=== PATIENT | female | born 1955 | race Caucasian/White ===

== ENCOUNTER 2016-03-31 17:09 | Emergency (ER) | payer OTHER ==
[~2016-03-31] VITALS: Ht 172.7 cm; Wt 119.3 kg
[~2016-03-31 17:09] MED LIST: ALLOPURINOL300 MG PO; ASPIRIN81 M1 PO; DILTIAZEM HCL120 M2 PO; HYDROCHLOROTHIA1 TA2 PO; METFORMIN HCL500 MG PO; VITAB121000 PO; VITAMIN D31000 IU PO; ZOCOR20 MG PO
--- NOTE | 2016-03-31 17:26 | ED HEADACHE COMPLAINT ---
History of Present Illness General Chief Complaint: General Adult Stated Complaint: " I HAVE HIGH BLOOD PRESSURE" Source: patient Exam Limitations: no limitations Vital Signs & Intake/Output Vital Signs & Intake/Output Vital Signs Date Time Temp Pulse Resp B/P Pulse O2 O2 Flow FiO2 Ox Delivery Rate 03/31 1837 128/68 03/31 1752 96 Room Air 03/31 1735 99.2 74 18 148/72 97 Room Air Allergies Coded Allergies: NO KNOWN ALLERGIES (03/31/16) Reconcile Medications Allopurinol 300 MG TAB 1 TAB PO DAILY GOUT (Reported) Aspirin 81 MG CTB 1 TAB PO DAILY HEART (Reported) Cholecalciferol (Vitamin D3) 1,000 IU TAB 1 TAB PO DAILY SUPPLEMENT (Reported ) Cyanocobalamin (Vitamin B-12) 1,000 MCG TAB 1 TAB PO DAILY V (Reported) Diltiazem Hydrochloride (Diltiazem HCl) 120 MG C24 1 CAP PO DAILY HEART ( Reported) LISINOPRIL/HYDROCHLOROTHIAZIDE (Lisinopril-Hctz 20-12.5 MG Tab) 1 TAB TAB 1 TAB PO DAILY HEART (Reported) Metformin Hydrochloride (Metformin HCl) 500 MG TAB 1 TAB PO BID DIABETES ( Reported) Simvastatin (Zocor) 20 MG TAB 1 TAB PO DAILY CHOLESTEROL (Reported) Triage Nurses Notes Reviewed? yes HPI: 60-year-old female arrived to triage to room 3 for evaluation of high blood pressure readings at home and headache that she's had for 1 day. Shweta reports that she'll get neck tightness that travels up into the back of her head which causes headaches along with some blurred vision and dizziness. This is occurred for one day. She has minimal pain at this time tight sensation in her neck and back of her head. She has been taking her blood pressures at home, automatic and BPs have been 160-150's / 90's. Her was concerned and brought her here for evaluation. She denies chest pain, SOB, abd pain. She took all her medications today except Cartia 120 mg and Metformin. (LAURIE SEVERINO APRN) Past History Travel History Traveled to [place] past 21 day No Medical History Any Pertinent Medical History? 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 No (LAURIE SEVERINO APRN) Review of Systems Review of Systems Constitutional: Denies: no symptoms. Eyes: Reports: blurred vision. Ears, Nose, Throat, Mouth: Denies: no symptoms. Respiratory: Denies: no symptoms. Cardiovascular: Denies: no symptoms. Gastrointestinal/Abdominal: Denies: no symptoms. Genitourinary: Denies: no symptoms. Musculoskeletal: Denies: no symptoms. Skin: Denies: no symptoms. Neurological/Psychological: Reports: ataxia, headache. Hematologic/Endocrine: Denies: no symptoms. Endocrine: Denies: no symptoms. Immunologic/Allergic: Denies: no symptoms. (LAURIE SEVERINO APRN) Physical Exam Physical Exam General Appearance: well developed/nourished, no apparent distress, alert, awake , obese Head: atraumatic, normal appearance Eyes: Bilateral: normal appearance, PERRL, EOMI. Ears, Nose, Throat: normal pharynx, normal ENT inspection Neck: supple, full range of motion, tender lateral (muscle spasms right) Respiratory: normal breath sounds, chest non-tender, no respiratory distress Cardiovascular: regular rate/rhythm, normal peripheral pulses Gastrointestinal: normal bowel sounds, soft, non-tender Back: normal inspection, normal range of motion Extremities: normal inspection, normal capillary refill, normal range of motion, no edema Psychiatric: awake, alert, oriented x 3 Cranial Nerves: normal hearing, normal speech, PERRL Coordination/Gait: normal finger to nose, normal gait Motor/Sensory: no motor/sensory deficits Skin: intact, normal color, warm/dry Core Measures Severe Sepsis Present: No Septic Shock Present: No (LAURIE SEVERINO APRN) Progress Differential Diagnosis: tension FORREST Plan of Care: Orders Procedure Date/time Status TROPONIN LEVEL 03/31 1731 Complete COMPREHENSIVE METABOLIC PANEL 03/31 173 Complete CBC WITHOUT DIFFERENTIAL 03/31 1731 Complete EKG 03/31 173 Active Laboratory Tests 03/31/16 1747: Anion Gap 12, Estimated GFR > 60, BUN/Creatinine Ratio 27.5 H, Glucose 103 H, Calcium 10.3 H, Total Bilirubin 0.5, AST 34, ALT 45, Alkaline Phosphatase 81, Troponin I < 0.01, Total Protein 7.0, Albumin 4.4, Globulin 2.6, Albumin/ Globulin Ratio 1.7, CBC w Diff NO MAN DIFF REQ, RBC 4.38, MCV 91.7, MCH 30.8, RDW 14.1, MPV 7.3 L, Gran % 61.2, Lymphocytes % 28.0, Monocytes % 8.4, Eosinophils % 1.9, Basophils % 0.5, Absolute Granulocytes 6.4, Absolute Lymphocytes 2.9, Absolute Monocytes 0.9 H, Absolute Eosinophils 0.2, Absolute Basophils 0, PUBS MCHC 33.6 Initial ED EKG: NSR, LVH Prior EKG: unchanged Comments: explained blood work to patient and . ECG no changes. repeat BP taken manually by me 128/68. she will be discharged home to follow up with Dr. Sears on Saturday. Case discussed with Dr. Hester (LAURIE SEVERINO APRN) Departure Departure Time of Disposition: 1837 Disposition: HOME OR SELF CARE Condition: Stable Clinical Impression Primary Impression: Tension headache Referrals: JESUS CRUMP,CHRISTELLE (PCP/Family) Additional Instructions: please follow up with Dr. Sears on Saturday as already scheduled. Please bring in your automatic cuff so you can correlate BPS with manual one in office. Take ibuprofen, Tylenol or Excedrin migraine has needed for for headaches. Use heat packs to neck for comfort, hot baths or showers. Departure Forms: Customer Survey General Discharge Information (LAURIE SEVERINO APRN) PA/GROUP HOME WORKER Co-Sign Statement Statement: ED Attending supervision documentation- [] I saw and evaluated the patient. I have also reviewed all the pertinent lab results and diagnostic results. I agree with the findings and the plan of care as documented in the PA's/GROUP HOME WORKER's documentation. [X] I have reviewed the ED Record and agree with the PA's/GROUP HOME WORKER's documentation. [] Additions or exceptions (if any) to the PAs/GROUP HOME WORKER's note and plan are summarized below: [] (YOVANA CRUMP,MONI)
[2016-03-31 17:52] LABS: ABSOLUTE BASOPHIL COUNT 0 /CUMM (0.0-0.2); ABSOLUTE EOSINOPHIL COUNT 0.2 /CUMM (0.0-0.7); ABSOLUTE GRANULOCYTE CT 6.4 /CUMM (1.4-6.5); ABSOLUTE LYMPH COUNT 2.9 /CUMM (1.2-3.4); ABSOLUTE MONOCYTE COUNT 0.9 /CUMM (0.10-0.60); BASOPHIL % 0.5 % (0.0-2.0); EOSINOPHIL % 1.9 % (0-5); GRANULOCYTE % 61.2 % (42.2-75.2); HEMATOCRIT 40.1 % (37-47); MEAN CORPUSCULAR HGB 30.8 PG (27.0-31.0); MEAN CORPUSCULAR HGB CONC 33.6 G/DL (33.0-37.0); MEAN CORPUSCULAR VOLUME 91.7 FL (81.0-99.0); MEAN PLATELET VOLUME 7.3 FL (7.4-10.4); PLATELET COUNT 289 /CUMM (130-400); RBC DISTRIBUTION WIDTH 14.1 % (11.5-14.5); RED BLOOD CELL CT 4.38 /CUMM (4.20-5.40); WHITE BLOOD CELL COUNT 10.5 /CUMM (4.8-10.8)
[2016-03-31 18:37] VITALS: BP 128/68
== END 2016-03-31 18:54 ==
LOC: ERH 17:09
PROVIDERS: Nurse Practitioner Family
DX: G44.209 Tension-type headache, unspecified, not intractable (principal)
CPT/HCPCS: 93005; 93010; 96374; J1885